=== PATIENT | female | born 1945 | race Caucasian/White ===

== ENCOUNTER → 2017-06-05 | Day surgery (SDC) | payer OTHER ==
[~2017-06-05] MED LIST: 1-ME1LIQ PO; BUPIVACAINE/EPINEPHRINE 0.5% PF 10 ML VIAL ONE; ENAL20TA PO; EPINEPHrine HCL (1:1000) 1 MG/ML VIAL OTHER ONE; GABA800T PO; HYDR-2768 PO; HYDR-3534 PO; JANU50TA9 PO; LACTATED RINGER'S 1000 ML INJ 1,000 ML ONE; LEVO50TA4 PO; LIDOCAINE HCL 1% PF 5 ML AMPULE OTHER ONE; MELO15 PO; MIDAZOLAM HCL 2 MG/2 ML VIAL ONE; OMPR20CCR PO; ONDANSETRON HCL 4 MG/2 ML VIAL IV PUSH ONE; PROPOFOL 200 MG/20 ML AMP IV ONE; VIIB40TA PO; VYTO10TA35 PO; ceFAZolin INJ 1,000 MG VIAL ONE
--- NOTE | 2017-06-05 20:55 | MP ---
cc: RICO LU DATE OF SURGERY 06/05/2017 PREOPERATIVE DIAGNOSIS Right knee medial and lateral meniscus tear. POSTOPERATIVE DIAGNOSIS Right knee medial and lateral meniscus tear. PROCEDURE Right knee arthroscopic partial medial and lateral meniscectomy. SURGEON Dr. Rico Lu ANESTHESIA General. ESTIMATED BLOOD LOSS Less than 10 cc. TOURNIQUET TIME Zero minutes. IDENTIFICATION Patient is a 61-year-old female who injured the right knee. She had persistence of pain in regards to her condition, has failed conservative treatment. Clinical exam as well as MRI confirm the above-named findings. The patient was counseled as to the risks, benefits, alternatives to the above-named surgical procedure. She did wish to proceed with surgery. PROCEDURE IN DETAIL A written consent was obtained. The patient identified by name, taken to the operating room, placed supine on the operating room table. General anesthesia was administered as well as 1 gram of IV Ancef. Right thigh carefully placed in well-padded leg sabillon. The right lower extremity prepped and draped using isopropyl alcohol, Hibiclens solution and DuraPrep solution. After a time-out was performed a standard medial and lateral parapatellar arthroscope portal was established. 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 The medial compartment revealed a complex tear of the midbody and posterior horn of the medial meniscus. An arthroscopic shaver was introduced into the medial compartment to perform partial medial meniscectomy. The meniscal rim was probed and noted to be stable. 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 The intercondylar notch showed the anterior and posterior cruciate ligaments to be intact. The lateral compartment revealed a midbody tear at lateral meniscus extending both into the anterior and posterior horns. An arthroscopic shaver was introduced into the lateral compartment to perform a partial lateral meniscectomy. Again, grade 2 and some grade 3 chondromalacia changes the lateral femoral condyle were noted. At the conclusion of the surgical procedure 30 cc of 0.5% Marcaine with epinephrine was injected into the knee joint. The arthroscopic portals were closed with 3-0 Prolene suture. Sterile dressing applied. The patient tolerated the procedure well with no intraoperative complications noted. MD ALBERT Pineda/JARRED /1:45 PM /8:37 PM
== END | disposition home or self-care (01) ==
LOC: ESDC 11:15
PROVIDERS: ATTEND Orthopaedic Surgery Sports Medicine
DX: S83.231A Complex tear of medial meniscus, current injury, right knee, initial encounter (principal); S83.281A Other tear of lateral meniscus, current injury, right knee, initial encounter
CPT/HCPCS: 01400; 29880; J0171; J0690; J2250; J2405; J3010; J7120